=== PATIENT | male | born 2000 | race Asian ===

== ENCOUNTER → 2025-05-14 | Emergency (ER) | payer OTHER ==
[~2025-05-14] VITALS: Ht 162.6 cm; Wt 100.0 kg
[~2025-05-14] MED LIST: ACET-66 PO; CEPH-558 PO; CLOB15CR10 TP; GUAIFDM PO; HYDR30CR3 TP; PRED-554 PO; TOBR5DRO44 OU; [UNRECOGNIZED DRUG - CODE] PO
[2025-05-14 14:39] VITALS: BP 121/72; PULSE 111; RESP 18; TEMP 98.1; O2SAT 99
[2025-05-14 14:55] LABS: COVID AG,FIA SOURCE NASAL SWAB
[2025-05-14 16:40] LABS: INFLUENZA TYPE A NEGATIVE FOR TYPE A (NEGATIVE); INFLUENZA TYPE B NEGATIVE FOR TYPE B (NEGATIVE); SARS-COV2 (COVID) ANTIGEN,FIA Negative (Negative)
== END | disposition still patient (30) ==
LOC: EMS 14:22
DX: L20.9 Atopic dermatitis, unspecified (principal); J06.9 Acute upper respiratory infection, unspecified; J45.909 Unspecified asthma, uncomplicated; Z79.899 Other long term (current) drug therapy; Z91.018 Allergy to other foods; Z20.822 Contact with and (suspected) exposure to COVID-19; Z91.09 Other allergy status, other than to drugs and biological substances
CPT/HCPCS: 87804; 99283